=== PATIENT | male | born 1990 | race Asian ===

== ENCOUNTER 2023-03-08 22:59 | Emergency (ER) | payer MEDICAID, MEDICARE ==
[~2023-03-08] VITALS: Ht 172.7 cm; Wt 70.3 kg
[2023-03-08 23:26] VITALS: BP 103/66
[2023-03-09] MEDS ORDERED: ACETAMINOPHEN 325MG SUPP PR ONE (00:30)
[2023-03-09] MEDS ORDERED: ACETAMINOPHEN 325MG TABLET PO ONE (00:45)
[2023-03-09] MEDS ORDERED: TOPUD MT (00:50)
== END 2023-03-09 01:52 | disposition home or self-care (01) ==
LOC: ER 23:29
DX: S69.92XA Unspecified injury of left wrist, hand and finger(s), initial encounter (principal); Z88.2 Allergy status to sulfonamides; Z88.6 Allergy status to analgesic agent; X58.XXXA Exposure to other specified factors, initial encounter; Y93.89 Activity, other specified; Y92.89 Other specified places as the place of occurrence of the external cause; Y99.8 Other external cause status
CPT/HCPCS: 29125; 73130; 99283